=== PATIENT | male | born 1990 | race Caucasian/White ===

== ENCOUNTER → 2019-08-04 | Emergency (ER) | payer SELFPAY ==
[~2019-08-04] MED LIST: LIDOCAINE 1% W/ EPINEPHRINE 20 ML VIAL INJ ONE; POVIDONE IODINE 10 % 15 ML UD TOP ONE; TETANUS-DIPHTHERIA TOXOIDS (TD) SYG IM ONE
--- NOTE | 2019-08-04 02:06 | ED.PDOC ---
History of Present Illness - General Time Seen by Provider: 08/04/19 02:02 Additional Information: Patient is a 29-year-old male who presents to the ED with chief complaint of laceration to left forearm. Patient indicates he had a mechanical trip and fall and cut his inner forearm on a sharp object. He has no other injuries. - History of Present Illness Allergies/Adverse Reactions: Allergies advil liquid gel caps Allergy (Uncoded 03/30/14 08:49) Review of Systems - Review of Systems Constitutional: States: no symptoms reported EENTM: States: no symptoms reported Respiratory: States: no symptoms reported Cardiology: States: no symptoms reported Gastrointestinal/Abdominal: States: no symptoms reported Musculoskeletal: States: see HPI All other Systems: Reviewed and Negative Past Medical History (General) - Patient Medical History Hx Seizures: No Hx Stroke: No Hx Dementia: No Hx Asthma: No Hx of COPD: No Hx Cardiac Disorders: No Hx Congestive Heart Failure: No Hx Pacemaker: No Hx Hypertension: No Hx Thyroid Disease: No Hx Diabetes: No Hx Gastroesophageal Reflux: No Hx Renal Disease: No Hx Cancer: No Hx of HIV: No Hx Hepatitis C: No Hx MRSA: No - Vaccination History Hx Tetanus, Diphtheria Vaccination: - not sure when last Hx Influenza Vaccination: No - Social History Hx Tobacco Use: Yes Hx Alcohol Use: No Hx Substance Use: No Hx Substance Use Treatment: No Hx Depression: No Family Medical History - Family History Mother Family History: No Known Living Status: Still Living Physical Exam - Physical Exam General Appearance: Alert, Anxious, No apparent distress, Unkempt Neck: non-tender, full range of motion, supple Cardiovascular/Respiratory: no respiratory distress Elbow/Forearm Exam: soft tissue tenderness - Patient with a 5 cm transverse laceration across the left volar forearm. Patient with full range of motion of wrist and hand but with considerable discomfort. No active bleeding. Normal sensation to light touch distally. Mental Status: alert, oriented x 3, other - Patient is extremely anxious and po christopher cooperative. Progress - Progress Progress: 08/04/19 02:35 Patient with transverse laceration to forearm with concern for deep tissue injury. Patient is extremely anxious and thrashing in the bed and he is unwilling/unable to control himself to receive local anesthesia. The wound was partially injected with lidocaine and epinephrine but patient indicates he could not tolerate the pain and demanded that the injection be stopped. Patient now wants to leave AMA because "I just cannot take it". Given patient's behavior I suspect that he is under the influence of illicit substances. I discussed with the patient the concern for tendon injury and infection and need for a proper thorough examination and treatment. Patient voices understanding and despite this still wishes to leave. I have discussed with patient that he must follow- up with a hand specialist or return to the emergency department as soon as possible to properly care for and examine patient's wound. I discussed with the patient the risk of delayed treatment could be permanent dysfunction to his arm and hand. 08/04/19 03:18 After reconsideration patient did permit me to numb his wound with lidocaine. However patient would not permit inspection of the wound to evaluate for deep tissue injury. I again impressed upon patient my the concern to properly evaluate for tendon injury and patient states "I do not care about any tendon, I just want you to God damn sew it up." I then left patient for him to reconsider permitting me to properly evaluate the wound and patient noted to have left the emergency department AMA. Departure - Departure Clinical Impression: Laceration Disposition: Left Against Medical Advice Condition: Fair Additional Instructions: You have an open wound at risk for infection and you possibly have tendon injury as well. It is imperative that you follow-up with an emergency department or a hand specialist as soon as possible for reevaluation and definitive management otherwise there is risk for serious infection and permanent loss of function.
[2019-08-04 02:08] VITALS: BP 105/68; TEMP 98.2; O2SAT 100
== END | disposition left against medical advice (07) ==
LOC: ER 01:47
DX: S51.812A Laceration without foreign body of left forearm, initial encounter (principal); Z53.29 Procedure and treatment not carried out because of patient's decision for other reasons; F17.200 Nicotine dependence, unspecified, uncomplicated; W01.0XXA Fall on same level from slipping, tripping and stumbling without subsequent striking against object, initial encounter; Y92.9 Unspecified place or not applicable

== ENCOUNTER 2019-08-05 19:34 | Emergency (ER) | payer OTHER ==
[2019-08-05] MEDS ORDERED: AMOXICILLIN & POT CLAVULANATE 875 MG TAB PO ONE (19:44)
[2019-08-05] MEDS ORDERED: SULFA/TRIMETH 800/160 (DS) TAB 1 EA TAB PO ONE (19:44)
[2019-08-05] MEDS ORDERED: NEOMYCIN-BACITRACIN-POLYMYXIN 0.9 GM UD TOP ONE (19:44)
[2019-08-05 19:58] VITALS: TEMP 97.6
--- NOTE | 2019-08-05 19:59 | ED.PDOC ---
History of Present Illness - General Chief Complaint: General Stated Complaint: retirement medical clearance Time Seen by Provider: 08/05/19 19:35 Source: patient Exam Limitations: no limitations - History of Present Illness Initial Comments: The patient is a 29-year-old male presented emergency room in the custody of police. He had apparently been running from the police for about an hour. He apparently fell and sustained 1/2 inch fairly superficial laceration to the right lateral eyebrow during the marcie. About 36 hours ago he had presented here to the emergency room most likely intoxicated with a 2-1/2 inch laceration to his left forearm which he refused to let the on-call attending treat. The on-call physician was not even able to get a good examination of the wound to see if there was significant tendon laceration. He was not in custody at that time and left AGAINST MEDICAL ADVICE. The patient is obviously intoxicated currently, most likely with methamphetamine. He is still belligerent and refusing to allow exploration of the forearm wound or significant repair. Sensation appears to be grossly preserved in the hand. Motor function appears to be grossly preserved in the hand. There is of course the area of decreased sensation just distal to the wound. Capillary refill is within normal limits. The forearm wound has approximately 1/4 inch gape to it and is already drying up and scabbing over. Too early to tell if there is any significant infection trying to start. No extending erythema. Timing/Duration: unsure Severity: moderate Improving Factors: nothing Worsening Factors: nothing Associated Symptoms: denies symptoms Allergies/Adverse Reactions: Allergies advil liquid gel caps Allergy (Uncoded 03/30/14 08:49) Home Medications: Ambulatory Orders Amoxicillin & Pot Clavulanate [Augmentin Tab] 875 mg PO BID #20 tab 08/05/19 Sulfa/Trimeth 800/160 (Ds) Tab [Bactrim DS Tab] 1 ea PO BID #20 tab 08/05/19 Review of Systems - Review of Systems Constitutional: States: malaise EENTM: States: no symptoms reported Respiratory: States: no symptoms reported Cardiology: States: no symptoms reported Gastrointestinal/Abdominal: States: no symptoms reported Genitourinary: States: no symptoms reported Musculoskeletal: States: no symptoms reported Skin: States: see HPI Neurological: States: other - The patient goes from being drowsy to waking up and being extremely agitated and belligerent. Endocrine: States: no symptoms reported All other Systems: No Change from Baseline Past Medical History (General) - Patient Medical History Hx Seizures: No Hx Stroke: No Hx Dementia: No Hx Asthma: No Hx of COPD: No Hx Cardiac Disorders: No Hx Congestive Heart Failure: No Hx Pacemaker: No Hx Hypertension: No Hx Thyroid Disease: No Hx Diabetes: No Hx Gastroesophageal Reflux: No Hx Renal Disease: No Hx Cancer: No Hx of HIV: No Hx Hepatitis C: No Hx MRSA: No - Vaccination History Hx Tetanus, Diphtheria Vaccination: - not sure when last Hx Influenza Vaccination: No Hx Pneumococcal Vaccination: No - Social History Hx Tobacco Use: Yes Hx Alcohol Use: No Hx Substance Use: No Hx Substance Use Treatment: No Hx Depression: No Family Medical History - Family History Mother Family History: No Known Living Status: Still Living Physical Exam - Physical Exam General Appearance: Alert, Other - Obviously still acutely intoxicated. Eye Exam: bilateral normal Ears, Nose, Throat: hearing grossly normal, normal pharynx Neck: full range of motion, supple Respiratory: lungs clear, normal breath sounds, no respiratory distress, no acc essory muscle use Cardiovascular/Chest: normal peripheral pulses, regular rate, rhythm, no edema Peripheral Pulses: radial,right: 2+, radial,left: 2+ Gastrointestinal/Abdominal: non tender, soft Rectal Exam: deferred Back Exam: no CVA tenderness, no vertebral tenderness Extremity: normal range of motion, no pedal edema, normal capillary refill, other - No obvious motor deficit to the left upper extremity however the cooperation from the patient is somewhat limited. 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 No evidence of meningitis., other - The patient is obviously still acutely intoxicated. Skin Exam: other - Lacerations as per history of present illness. Comments: Vital Signs - 24 hr 08/05/19 19:51 Temperature 97.6 F Pulse Rate [ 128 H left] Respiratory 24 Rate Blood Pressure 133/95 [Left Arm] O2 Sat by Pulse 95 Oximetry Progress - Progress Progress: 08/05/19 20:03 The patient is a 29-year-old male presented emergency room in custody of the police. Patient is obviously still acutely intoxicated with what is most likely methamphetamine based on his appearance and behavior. The patient does not appear to be in any distress. The patient is highly belligerent and is not cooperative with an extensive examination and repair of the left forearm laceration. He did allow mild cleaning with hydrogen peroxide and dressing to the forearm. He also did allow cleaning with peroxide and Steri-Strip placement to the right eyebrow laceration. Exam is limited secondary to cooperation. The patient is going to be placed on Bactrim and Augmentin for the next 10 days to help try and prevent infection in the forearm primarily. The forearm wound can heal by secondary intention but does need to be washed and redressed with triple antibiotic ointment at least daily. Monitor for any evidence of infection. It is certainly the possibility that once the patient is no longer intoxicated, that more of a deficit in the hand due to the laceration may be found. If that is the case then he may need to seek specialty care at a later date. It is also possible the patient may have significant background psychiatric abnormalities, however at this time a psychiatric evaluation is not appropriate as he is still intoxicated. Vital signs appear stable. The patient will be released in the custody of the police. Return to the emergency room for any significant worsening. genaro prater [id number] Departure - Departure Clinical Impression: Acute drug intoxication Forearm laceration Qualifiers: Encounter type: initial encounter Laterality: left Qualified Code(s): S51.812A - Laceration without foreign body of left forearm, initial encounter Eyebrow laceration Qualifiers: Encounter type: initial encounter Laterality: right Qualified Code(s): S01.111A - Laceration without foreign body of right eyelid and periocular area, initial encounter Disposition: Nursing Home Condition: Fair Departure Forms: ED Discharge - Pt. Copy, Patient Portal Self Enrollment Diet: regular diet Activity: increase activity as tolerated Prescriptions: Amoxicillin & Pot Clavulanate [Augmentin Tab] 875 mg PO BID #20 tab Sulfa/Trimeth 800/160 (Ds) Tab [Bactrim DS Tab] 1 ea PO BID #20 tab Home Medications: Ambulatory Orders Amoxicillin & Pot Clavulanate [Augmentin Tab] 875 mg PO BID #20 tab 08/05/19 Sulfa/Trimeth 800/160 (Ds) Tab [Bactrim DS Tab] 1 ea PO BID #20 tab 08/05/19 Additional Instructions: The patient is a 29-year-old male presented emergency room in custody of the police. Patient is obviously still acutely intoxicated with what is most likely methamphetamine based on his appearance and behavior. The patient does not appear to be in any distress. The patient is highly belligerent and is not cooperative with an extensive examination and repair of the left forearm laceration. He did allow mild cleaning with hydrogen peroxide and dressing to the forearm. He also did allow cleaning with peroxide and Steri-Strip placement to the right eyebrow laceration. Exam is limited secondary to cooperation. The patient is going to be placed on Bactrim and Augmentin for the next 10 days to help try and prevent infection in the forearm primarily. The forearm wound can heal by secondary intention but does need to be washed and redressed with triple antibiotic ointment at least daily. Monitor for any evidence of infection. It is certainly the possibility that once the patient is no longer intoxicated, that more of a deficit in the hand due to the laceration may be found. If that is the case then he may need to seek specialty care at a later date. It is also possible the patient may have significant background psychiatric abnormalities, however at this time a psychiatric evaluation is not appropriate as he is still intoxicated. Vital signs appear stable. The patient will be released in the custody of the police. Return to the emergency room for any significant worsening.
[2019-08-05 20:16] VITALS: BP 122/80; O2SAT 97
== END 2019-08-05 20:16 ==
LOC: ER 19:34
DX: S51.812A Laceration without foreign body of left forearm, initial encounter (principal); S01.111A Laceration without foreign body of right eyelid and periocular area, initial encounter; F10.129 Alcohol abuse with intoxication, unspecified; F19.90 Other psychoactive substance use, unspecified, uncomplicated; W18.30XA Fall on same level, unspecified, initial encounter; Y92.9 Unspecified place or not applicable

== ENCOUNTER 2020-02-06 15:28 | Emergency (ER) | payer SELFPAY ==
--- NOTE | 2020-02-06 15:43 | ED.PDOC ---
History of Present Illness - General Chief Complaint: Dental/Mouth Time Seen by Provider: 02/06/20 15:33 Source: patient, RN notes reviewed, Vital Signs reviewed, old records - History of Present Illness Initial Comments: 30 yo male with right upper dental pain that started 4 days ago. Has damaged tooth. feels swelling and pain. no fever, no trouble swallowing. Timing/Duration: gradual Severity: moderate Allergies/Adverse Reactions: Allergies advil liquid gel caps Allergy (Uncoded 03/30/14 08:49) Home Medications: Ambulatory Orders Amoxicillin & Pot Clavulanate [Augmentin Tab] 875 mg PO BID #20 tab 08/05/19 Sulfa/Trimeth 800/160 (Ds) Tab [Bactrim DS Tab] 1 ea PO BID #20 tab 08/05/19 Amoxicillin & Pot Clavulanate [Augmentin Tab] 875 mg PO BID #14 tab 02/06/20 Review of Systems - Review of Systems Constitutional: Denies: chills, fever EENTM: States: see HPI, mouth swelling. Denies: blurred vision, ear pain, ear discharge Respiratory: Denies: cough, short of breath Cardiology: Denies: chest pain, palpitations Gastrointestinal/Abdominal: Denies: abdominal pain, nausea, vomiting Genitourinary: Denies: frequency Musculoskeletal: Denies: joint pain, muscle pain Skin: Denies: rash Neurological: Denies: headache, numbness, weakness Endocrine: Denies: unexplained weight gain, unexplained weight loss Hematologic/Lymphatic: Denies: blood clots, easy bleeding, easy bruising Past Medical History (General) - Patient Medical History Hx Seizures: No Hx Stroke: No Hx Dementia: No Hx Asthma: No Hx of COPD: No Hx Cardiac Disorders: No Hx Congestive Heart Failure: No Hx Pacemaker: No Hx Hypertension: No Hx Thyroid Disease: No Hx Diabetes: No Hx Gastroesophageal Reflux: No Hx Renal Disease: No Hx Cancer: No Hx of HIV: No Hx Hepatitis C: No Hx MRSA: No - Vaccination History Hx Tetanus, Diphtheria Vaccination: - not sure when last Hx Influenza Vaccination: No Hx Pneumococcal Vaccination: No - Social History Hx Tobacco Use: Yes Hx Alcohol Use: No Hx Substance Use: No Hx Substance Use Treatment: No Hx Depression: No Family Medical History - Family History Mother Family History: No Known Living Status: Still Living Physical Exam - Physical Exam General Appearance: Alert, Comfortable, No apparent distress, Well Developed, Well Groomed, Well Hydrated, Well Nourished Eye Exam: bilateral normal Nasal Exam: normal inspection Throat Exam: pharynx normal, dental tenderness - tooth 4 with erythema, mild fluctuance, no area able to drain. 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 The history and assessments from nurses notes were reviewed and c onsidered, and the patient's home medication list was also reviewed and considered. My assessment a completed here in the ED were discussed with the patient. All questions were answered, and they express understanding of my assessment and the plan. They have been instructed to return if their symptoms worsen, and have been asked to follow up with their dentist and pcp to recheck today's presenting complaint. return precautions given. I have reviewed medication, benefits, alternatives and side effects. Patient decided to proceed with medication.pt declined anything for pain. Departure - Departure Clinical Impression: Dental abscess Time of Disposition: 15:40 Disposition: Discharge to Home or Self Care Departure Forms: ED Discharge - Pt. Copy, Patient Portal Self Enrollment Instructions: DI for Mouth Pain, Tooth Abscess (DC), Dental Pain (DC) Diet: resume usual diet Prescriptions: Amoxicillin & Pot Clavulanate [Augmentin Tab] 875 mg PO BID #14 tab Home Medications: Ambulatory Orders Amoxicillin & Pot Clavulanate [Augmentin Tab] 875 mg PO BID #20 tab 08/05/19 Sulfa/Trimeth 800/160 (Ds) Tab [Bactrim DS Tab] 1 ea PO BID #20 tab 08/05/19 Amoxicillin & Pot Clavulanate [Augmentin Tab] 875 mg PO BID #14 tab 02/06/20
[2020-02-06 15:46] VITALS: TEMP 97.9; O2SAT 98
[2020-02-06 15:50] VITALS: BP 98/54
== END 2020-02-06 15:49 | disposition home or self-care (01) ==
LOC: ER 15:28
DX: K04.7 Periapical abscess without sinus (principal); Z87.891 Personal history of nicotine dependence; Z88.6 Allergy status to analgesic agent